=== PATIENT | female | born 1995 | race Caucasian/White ===

== ENCOUNTER 2017-08-27 21:21 | Emergency (ER) | payer OTHER ==
[~2017-08-27] VITALS: Ht 157.5 cm; Wt 53.3 kg
[~2017-08-27 21:21] MED LIST: MOTRIN PRN
[2017-08-27 21:25] VITALS: Ht 157.5 cm; Wt 53.3 kg
[2017-08-27] MEDS ORDERED: SOD CHLORIDE 0.9% 1,000 ML IV STA (21:37)
[2017-08-27] MEDS ORDERED: ONDANSETRON 4 MG INJ IV STA (21:37)
[2017-08-27] MEDS ORDERED: ONDA4TAB14 PO (21:38)
--- NOTE | 2017-08-27 21:42 | ERD ---
ER Documentation Chief Complaint Chief Complaint PT IN C/O N/V X 1 DAY. HPI Patient is a 22-year-old female with no past medical history presents to the ED for concerns of nausea and vomiting which started around 1 AM last night. Patient states that she had very little to eat the day prior. Patient states she went on night and had approximately 8 shots of vodka. Patient states she is having difficulty keeping fluids down. Patient reports ongoing nausea and vomiting throughout the day. Denies any blood or bile in her vomit. Patient denies any fevers, chills, chest pain, shortness breath, abdominal pain, diarrhea, dysuria, frequency, hematuria or loss consciousness. Patient states her last menstrual period was 3 days ago. ROS All systems reviewed and are negative except as per history of present illness. Medications Home Meds Active Scripts Ondansetron (Ondansetron Odt) 4 Mg Tab.rapdis, 4 MG PO Q6H Y for NAUSEA AND/OR VOMITING, #10 TAB Prov:MICKI DUNBAR PA-C 08/27/17 Reported Medications [Motrin Prn] No Conflict Check 10/09/09 Allergies Allergies: Coded Allergies: No Known Allergy (Unverified Allergy, Unknown, 12/20/09) PMhx/Soc History of Surgery: No Hx Neurological Disorder: No Hx Respiratory Disorders: No Hx Cardiac Disorders: No Hx Miscellaneous Medical Probl: No Hx Alcohol Use: Yes Hx Substance Use: No Hx Tobacco Use: No Physical Exam Vitals Vital Signs Date Time Temp Pulse Resp B/P Pulse Ox O2 Delivery O2 Flow Rate FiO2 08/27/17 23:32 98.4 110 16 113/63 100 Room Air 08/27/17 21:25 99.0 118 18 125/78 99 Physical Exam GENERAL: Well-developed, well-nourished female. Appears in no acute distress. Speaking in full sentences. HEAD: Normocephalic, atraumatic. EYES: Pupils are equally reactive bilaterally. EOMs grossly intact. No conjunctival erythema. ENT: Dry mucous membranes. No uvula deviation. No kissing tonsils. NECK: Supple. No meningismus. Normal range of motion of the neck. LUNG: Clear to auscultation bilaterally. No rhonchi, wheezing, rales or coarse breath sounds. HEART: Regular rate and rhythm. No murmurs, rubs or gallops. ABDOMEN: No scars, ecchymosis or rashes noted. Soft, nontender, and nondistended. Positive bowel sounds in all four quadrants. No rebound tenderness , no guarding. (-) McBurney's point tenderness. No CVA tenderness. EXTREMITIES: Equal pulses bilaterally. No peripheral clubbing, cyanosis or edema. No unilateral leg swelling. NEUROLOGIC: Alert and oriented. Moving all four extremities without any difficulty. Normal speech. Steady gait. SKIN: Normal color. Warm and dry. No rashes or lesions. Result Diagram: 08/27/17215408/27/172154 Results 24 hrs Laboratory Tests Test 08/27/17 21:55 White Blood Count 13.110^3/ul Red Blood Count 4.8710^6/ul Hemoglobin 14.5g/dl Hematocrit 43.9% Mean Corpuscular Volume 90.1fl Mean Corpuscular Hemoglobin 29.8pg Mean Corpuscular Hemoglobin Concent 33.0g/dl Red Cell Distribution Width 13.0% Platelet Count 65459^3/UL Mean Platelet Volume 10.0fl Neutrophils % 87.4% Lymphocytes % 8.1% Monocytes % 3.8% Eosinophils % 0.0% Basophils % 0.2% Nucleated Red Blood Cells % 0.0/100WBC Neutrophils # 11.410^3/ul Lymphocytes # 1.110^3/ul Monocytes # 0.510^3/ul Eosinophils # 0.010^3/ul Basophils # 0.010^3/ul Nucleated Red Blood Cells # 0.010^3/ul Sodium Level 141mmol/L Potassium Level 4.5mmol/L Chloride Level 100mmol/L Carbon Dioxide Level 23mmol/L Anion Gap 23 Blood Urea Nitrogen 23mg/dl Creatinine 0.62mg/dl Glucose Level 75mg/dl Calcium Level 9.6mg/dl Total Bilirubin 0.6mg/dl Direct Bilirubin 0.00mg/dl Indirect Bilirubin 0.6mg/dl Aspartate Amino Transf (AST/SGOT) 69IU/L Alanine Aminotransferase (ALT/SGPT) 42IU/L Alkaline Phosphatase 134IU/L Total Protein 9.0g/dl Albumin 5.2g/dl Globulin 3.80g/dl Albumin/Globulin Ratio 1.36 Lipase 23U/L Current Medications Medications (Trade) Dose Ordered Sig/Lolis Route PRN Reason Start Time Stop Time Status Last Admin Dose Admin Sodium Chloride (NS) 1,000 ml @ 1,000 mls/hr Q1H STAT IV 08/27/17 21:37 08/27/17 22:36 DC 08/27/17 21:58 Ondansetron HCl (Zofran Inj) 4 mg ONCE STAT IV 08/27/17 21:37 08/27/17 21:38 DC 08/27/17 21:58 Procedures/MDM ED COURSE: The patient was stable throughout ED course. I kept the patient and/or family informed of laboratory and diagnostic imaging results throughout the ED course. MEDICATIONS GIVEN: IV fluids, Zofran Patient tolerated medication well with no adverse reactions. Patient reported improvement in pain. MEDICAL DECISION MAKING: This is a 22-year-old female presents with nausea and vomiting times a day after drinking last night. Patient reports taking approximately 8 shots of vodka on an empty stomach. Patient denies any abdominal pain, fever, chills or diarrhea. Vital signs were reviewed. Patient is afebrile. Abdominal exam was benign. Patient had no peritoneal signs. CBC showed no evidence of severe anemia. Patient's WBC count was noted to be 13.1, elevation likely due to vomiting. CMP showed no evidence of electrolyte abnormalities, severe acidosis, alkalosis , renal failure. AST of 69, alk phos of 134. Elevations are likely due to recent drinking. Lipase showed no evidence of acute pancreatitis. Urine test was negative. Patient was given IV fluids and Zofran. Patient reported improvement of symptoms. At this time, patient's presentation is most consistent with nausea and vomiting secondary to alcohol use.. I have a much lower clinical concern for acute coronary syndrome, AAA, mesenteric ischemia, lower lobe pneumonia, DKA, bowel perforation, cholecystitis, choledocholithiasis, ascending cholangitis, hepatic abscess, pancreatitis, PUD, gastritis, GERD, splenic rupture, diverticulitis, UTI, pyelonephritis, nephrolithiasis, appendicitis, constipation , , ectopic , PID, ovarian torsion or tubo-ovarian abscess. PRESCRIPTIONS: Zofran DISCHARGE: At this time, patient is stable for discharge and outpatient management. I have instructed the patient to follow-up with his/her primary care physician in 1-2 days. I have instructed the patient to promptly return to the ER at any time for any new or worsening symptoms including increased pain, nausea, vomiting, diarrhea, fever, weakness or LOC. The patient and/or family expressed understanding of and agreement with this plan. All questions were answered. Home care instructions were provided. Disclaimer: Inadvertent spelling and grammatical errors are likely due to EHR/ dictation software use and do not reflect on the overall quality of patient care. Also, please note that the electronic time recorded on this note does not necessarily reflect the actual time of the patient encounter. Departure Diagnosis: Primary Impression: Nausea and vomiting Vomiting type: unspecified Vomiting Intractability: unspecified Qualified Code: R11.2 - Nausea and vomiting, intractability of vomiting not specified, unspecified vomiting type Additional Impression: Alcohol use Condition: Stable Patient Instructions: Nausea and Vomiting-Adult Additional Instructions: Call your primary care doctor TOMORROW for an appointment during the next 1-2 days.See the doctor sooner or return here if your condition worsens before your appointment time. Drink plenty of fluids. MICKI DUNBAR PA-C Aug 27, 2017 21:42
[2017-08-27 22:26] LABS: BASOPHILS % 0.2 % (0.0-2.0); HEMATOCRIT 43.9 % (37.0-47.0); HEMOGLOBIN 14.5 g/dl (12.0-16.0); LYMPHOCYTES # 1.1 10^3/ul (0.8-2.9); LYMPHOCYTES % 8.1 % (15.0-51.0); MEAN CORPUSCULAR HEMOGLOBIN 29.8 pg (29.0-33.0); MEAN CORPUSCULAR VOLUME 90.1 fl (82.0-101.0); MONOCYTE # 0.5 10^3/ul (0.3-0.9); MONOCYTES % 3.8 % (0.0-11.0); NEUTROPHIL # 11.4 10^3/ul (1.6-7.5); NEUTROPHILS % 87.4 % (39.0-77.0); PLATELET COUNT 331 10^3/UL (140-415); RED BLOOD COUNT 4.87 10^6/ul (4.20-5.40); WHITE BLOOD COUNT 13.1 10^3/ul (4.8-10.8)
[2017-08-27 22:50] LABS: ALBUMIN 5.2 g/dl (3.3-4.9); ALBUMIN/GLOBULIN RATIO 1.36; BILIRUBIN,INDIRECT 0.6 mg/dl (0-1.1); BILIRUBIN,TOTAL 0.6 mg/dl (0.2-1.3); CALCIUM 9.6 mg/dl (8.4-10.2); CREATININE 0.62 mg/dl (0.44-1.00); POTASSIUM 4.5 mmol/L (3.5-5.1)
[2017-08-27 23:32] VITALS: BP 113/63; PULSE 110; RESP 16; TEMP 98.4
== END 2017-08-27 23:34 | disposition home or self-care (01) ==
LOC: FTE 21:21
DX: F10.929 Alcohol use, unspecified with intoxication, unspecified (principal)
CPT/HCPCS: 36415; 80053; 83690; 85025; 96374; 99284; J2405; J7030